=== PATIENT | female | born 1985 | race Asian ===

== ENCOUNTER 2017-03-25 13:26 | Emergency (ER) | payer SELFPAY ==
[~2017-03-25] VITALS: Ht 165.1 cm; Wt 70.0 kg
[2017-03-25] MEDS ORDERED: ACETAMINOPHEN 500 MG TABLET PO ONE (14:45)
[2017-03-25 15:00] VITALS: BP 152/76
== END 2017-03-25 16:08 | disposition home or self-care (01) ==
LOC: EMS 13:31
DX: O9A.211 Injury, poisoning and certain other consequences of external causes complicating pregnancy, first trimester (principal); S63.92XA Sprain of unspecified part of left wrist and hand, initial encounter; Z3A.12 12 weeks gestation of pregnancy; X50.1XXA Overexertion from prolonged static or awkward postures, initial encounter; Y93.E8 Activity, other personal hygiene; Y92.89 Other specified places as the place of occurrence of the external cause; Y99.8 Other external cause status
CPT/HCPCS: 99284